=== PATIENT | female | born 1985 | race Caucasian/White ===

== ENCOUNTER 2023-01-13 17:07 | Emergency (ER) | payer OTHER ==
[2023-01-13 17:32] LABS: BASOPHILS ABSOLUTE AUTO 0.01 K/mm3 (0.01-0.08); BASOPHILS PERCENT AUTO 0.1 % (0.1-1.2); EOSINOPHILS PERCENT AUTO 0 (0.7-5.8); IMMATURE GRAN ABSOLUTE AUTO 0.03 K/mm3 (0.00-0.10); IMMATURE GRAN PERCENT AUTO 0.2 % (<=1.0); LYMPHOCYTES ABSOLUTE AUTO 0.93 K/mm3 (1.18-3.74); LYMPHOCYTES PERCENT AUTO 6.8 % (19.3-51.7); MEAN CORPUSCULAR HEMOGLOBIN 29.6 pg (25.6-32.2); MEAN CORPUSCULAR HGB CONC 34.7 g/dl (32.2-35.5); MEAN CORPUSCULAR VOLUME 85.4 fl (79.4-94.8); MEAN PLATELET VOLUME 11.3 fl (9.4-12.3); MONOCYTES ABSOLUTE AUTO 0.67 K/mm3 (0.24-0.36); MONOCYTES PERCENT AUTO 4.9 % (4.7-12.5); NEUTROPHILS ABSOLUTE AUTO 11.96 K/mm3 (1.56-6.13); PLATELET COUNT,PLT 361 K/mm3 (182-369); RED BLOOD CELL COUNT 5.74 M/mm3 (3.98-5.22)
[2023-01-13] MEDS: Ondansetron 4 MG/2 ML SDV IVPUSH ONE (17:43)
[2023-01-13 18:03] LABS: A/G RATIO 1.1 (1-2); ALANINE AMINOTRANSFERASE,ALT 47 U/L (14-59); ALBUMIN 4.3 g/dl (3.4-5.0); ALKALINE PHOSPHATASE 112 U/L (46-116); ANION GAP 17.5 (5-15); ASPARTATE AMNIOTRANSFERASE,AST 31 U/L (15-37); BILIRUBIN TOTAL 0.8 mg/dL (0.2-1.0); BLOOD UREA NITROGEN,BUN 21 mg/dL (7-18); BUN/CREATININE RATIO 23.3 (14-18); CALCIUM 9.5 mg/dL (8.5-10.1); CARBON DIOXIDE,CO2 25 mEq/L (21-32); CHLORIDE,CL 100 mEq/L (98-107); CREATININE 0.9 mg/dL (0.55-1.02); ESTIMATED GFR 83 mL/min (>60); GLUCOSE RANDOM 117 mg/dL (70-99); HCG QUANTITATIVE < 1.0 mIU/mL; POTASSIUM,K 3.5 mEq/L (3.5-5.1); PROTEIN TOTAL,TP 8.2 g/dl (6.4-8.2); SODIUM,NA 139 mEq/L (136-145); TSH 0.801 uIU/mL (0.358-3.74)
[2023-01-13 18:04] LABS: ACETAMINOPHEN 0 ug/mL (10-30)
[2023-01-13] MEDS ORDERED: Ibuprofen 600 MG Tab PO ONE (18:31)
[2023-01-13] MEDS ORDERED: LORazepam 2 MG/ML SDV IVPUSH ONE (18:48)
[2023-01-13] MEDS ORDERED: Haloperidol Lactate 5 MG/ML SDV IVPUSH ONE (18:48)
[2023-01-13] MEDS ORDERED: Prochlorperazine 10 MG/2 ML SDV IVPUSH ONE (19:52)
[2023-01-14 05:23] LABS: BARBITURATE SCREEN,URINE NEGATIVE (CUTOFF=200); BENZODIAZEPINES SCREEN,URINE PRESUMPTIVE POSITIVE (CUTOFF=150); BUPRENORPHINE SCREEN,URINE NEGATIVE (CUTOFF=10); METHADONE SCREEN, URINE NEGATIVE (CUTOFF=200); METHAMPHETAMINES SCREEN, URINE PRESUMPTIVE POSITIVE (CUTOFF=500); OXYCODONE SCREEN,URINE NEGATIVE (CUT0FF=100); PROPOXYPHENE SCREEN,URINE NEGATIVE (CUTOFF=300); THC SCREEN,URINE 20 NG/ML NEGATIVE (CUTOFF=50)
[2023-01-14 05:26] LABS: AMPHETAMINES SCREEN, URINE PRESUMPTIVE POSITIVE (CUTOFF=500)
[2023-01-14] MEDS ORDERED: Haloperidol Lactate 5 MG/ML SDV IVPUSH STA (05:37)
[2023-01-14] MEDS ORDERED: LORazepam 2 MG/ML SDV IVPUSH STA (05:38)
[2023-01-14] MEDS ORDERED: LORazepam 1 MG Tab PO ONE (09:19)
[2023-01-14] MEDS ORDERED: Acetaminophen 325 MG Tab PO ONE (11:14)
[2023-01-14] MEDS: Ondansetron 4 MG/2 ML SDV IVPUSH ONE (11:25)
[2023-01-14] MEDS ORDERED: LORazepam 0.5 MG Tab PO ONE (15:03)
[2023-01-14] MEDS ORDERED: Ondansetron 4 MG Tab.DIS PO ONE (15:15)
[2023-01-14] MEDS ORDERED: Metoclopramide 10 MG/2 ML SDV IVPUSH ONE (18:26)
[2023-01-14] MEDS ORDERED: LORazepam 2 MG/ML SDV IVPUSH ONE (18:39)
[2023-01-14] MEDS ORDERED: cloNIDine 0.1 MG Tab PO ONE (20:43)
[2023-01-14] MEDS ORDERED: Sodium Chloride 0.9% 1,000 ML IV ONE (20:44)
[2023-01-14] MEDS ORDERED: Sodium Chloride 0.9% 1,000 ML ONE (21:56)
[2023-01-14] MEDS: Sodium Chloride 0.9% 1,000 ML IV SCH (22:01)
[2023-01-15] MEDS: Sodium Chloride 0.9% 1,000 ML IV SCH (02:56)
[2023-01-15] MEDS ORDERED: Ondansetron 4 MG/2 ML SDV IVPUSH ONE ×2 (07:55→14:07)
[2023-01-15] MEDS ORDERED: Loperamide 2 MG Cap PO ONE (18:09)
[2023-01-15] MEDS ORDERED: hydrOXYzine HCl 25 MG Tab PO ONE (22:12)
[2023-01-16] MEDS ORDERED: hydrOXYzine HCl 25 MG Tab PO ONE (01:21)
== END 2023-01-16 11:15 | disposition home or self-care (01) ==
LOC: JD.ED 17:07
DX: F11.23 Opioid dependence with withdrawal (principal); Z91.011 Allergy to milk products; Z88.2 Allergy status to sulfonamides; Z91.018 Allergy to other foods; Z20.822 Contact with and (suspected) exposure to COVID-19
CPT/HCPCS: 36415; 80053; 80143; 80179; 80306; 80307; 84443; 84702; 85025; 87635; 93005; 96361; 96374; 96375; 96376; 99285; A9270; J0780; J1630; J2060; J2405; J2765; J7030; 93010; 99284; U0002